=== PATIENT | male | born 1980 | race Caucasian/White ===

== ENCOUNTER → 2016-07-29 | Outpatient (CLI) | payer SELFPAY ==
[~2016-07-29] MED LIST: NO ROUTINE MEDS
--- NOTE | 2016-07-29 15:31 | DI ---
Indication: ITS.REASON: R19.7 DIARRHEA PROCEDURE: PA view of the chest with supine and upright AP views of the abdomen Encounter: Initial Comparison: KUB dated May 30, 2016 FINDINGS: The lungs are clear. There is no abnormal airspace opacity, pleural effusion or pneumothorax identified. The heart size, pulmonary vasculature and mediastinum are within normal limits. There is no free air on the upright view. The bowel gas pattern is nonobstructive and nonspecific. Gas is seen in nondilated small and large bowel to the level of the rectum. Nondifferential air-fluid levels seen in the transverse colon and small bowel. The bony structures are grossly unremarkable. IMPRESSION: 1. No acute cardiopulmonary abnormality. 2. No evidence of acute obstruction or free air. Air-fluid levels in the bowel suggesting gastroenteritis. .
== END ==
LOC: IMA 14:42
PROVIDERS: ATTEND Family Medicine
DX: R19.7 Diarrhea, unspecified (principal)